=== PATIENT | male | born 1990 | race Caucasian/White ===

== ENCOUNTER 2021-08-06 09:54 | Emergency (ER) | payer BC, OTHER ==
[2021-08-06] MEDS ORDERED: HYDROcodone/Acetaminophen 5/325 mg Tablet ONE (10:19)
== END 2021-08-06 11:25 | disposition home or self-care (01) ==
LOC: ERS 09:54
DX: S43.004A Unspecified dislocation of right shoulder joint, initial encounter (principal); X58.XXXA Exposure to other specified factors, initial encounter